=== PATIENT | female | born 1975 | race Two or more races ===

== ENCOUNTER → 2017-11-16 | Outpatient (REF) | payer MEDICAID ==
[~2017-11-16] MED LIST: ALB6.7R INH; AMOX500T10 PO; BUD180R INH; FEXO180T87 PO; INDO-21 PO; KET10 PO; LIDO15SO2 PO; PRED-1 PO; [UNRECOGNIZED DRUG - CODE] PO
== END ==
LOC: ZZSENDIN 15:00
PROVIDERS: ATTEND Physician Assistant
DX: Z01.810 Encounter for preprocedural cardiovascular examination (principal); Z01.812 Encounter for preprocedural laboratory examination
CPT/HCPCS: 81001

== ENCOUNTER → 2017-11-16 | Outpatient (CLI) | payer MEDICAID ==
--- NOTE | 2017-11-16 14:52 | RADIOLOGY IMAGING REPORT ---
FACILITY: [facility] - [place] PATIENT NAME: Linda Smith : 1975 MR: [id number] V: [id number] EXAM DATE: ORDERING PHYSICIAN: JENARO LAL TECHNOLOGIST: Location: [facility] [place] Patient: Linda Smith : 1975 Visit/Account:[id number] Date of Sevice: 11/16/2017 CERVICAL SPINE 2 OR 3 VIEW Indication: Ankylosing spondylitis Comparison: None. Findings: Vertebral bodies and posterior elements are intact. There is mild disc space narrowing at C 4-5. Remaining disc spaces are normal. Facets are unremarkable. IMPRESSION: Mild cervical spondylosis C4-5. Report Dictated By: David Armstrong at 11/16/2017 2:46 PM Report E-Signed By: David Armstrong at 11/16/2017 2:48 PM WSN:[id number]
== END ==
LOC: RAD 13:57
PROVIDERS: ATTEND Physician Assistant
DX: M47.892 Other spondylosis, cervical region (principal)
CPT/HCPCS: 72040

== ENCOUNTER → 2017-11-23 | Outpatient (REF) | payer MEDICAID ==
[~2017-11-23] MED LIST changes: +CYCL10TA29 PO; +DUL100/5PT INH
== END ==
LOC: ZZSENDIN 14:03
PROVIDERS: ATTEND Physician Assistant
DX: R31.9 Hematuria, unspecified (principal)
CPT/HCPCS: 81001

== ENCOUNTER 2017-11-29 01:23 | Observation (INO) | payer MEDICAID ==
[~2017-11-29] VITALS: Ht 157.5 cm; Wt 77.6 kg
[2017-11-29] VITALS (10 sets, daily range): BP systolic 103–119; BP diastolic 68–83
[2017-11-29] MEDS ORDERED: fentaNYL CITR 100 MCG/2 ML AMP ONE ×4 (10:24→15:08)
[2017-11-29] MEDS ORDERED: LIDOCAINE MPF 1% 5 ML VIAL ONE ×2 (10:24→10:25)
[2017-11-29] MEDS ORDERED: MIDAZOLAM 2 MG/2 ML VIAL ONE (10:24)
[2017-11-29] MEDS ORDERED: DEXAMETHASONE SOD PHOS 10MG/ML ONE (10:24)
[2017-11-29] MEDS ORDERED: PROPOFOL EMUL(*) 10MG/ML 20 ML 20 ML ONE (10:24)
[2017-11-29] MEDS ORDERED: ONDANSETRON 4 MG/2 ML VIAL ONE (10:24)
[2017-11-29] MEDS ORDERED: ROPIVACAINE 0.2% 20 ML VIAL ONE (10:25)
[2017-11-29] MEDS: NORMOSOL R SOLN(*) 1000 ML BAG 1,000 ML IV PRN ×2 (10:50→15:30)
[2017-11-29] MEDS ORDERED: SUGAMMADEX SOD 200 MG/2 ML SDV ONE (10:59)
[2017-11-29] MEDS ORDERED: MIDAZOLAM 2 MG/2 ML VIAL IVP PRN (11:10)
[2017-11-29] MEDS ORDERED: CELECOXIB 200 MG CAP PO ONE (11:10)
[2017-11-29] MEDS ORDERED: cloNIDine EPIDUR INJ 100MCG/ML 40 MCG, ROPIVACAINE 0.5% 20 ML VIAL 25 ML, EPINEPHrine H... INJ ONE (11:10)
[2017-11-29] MEDS ORDERED: ACETAMINOPHEN 500 MG TAB PO ONE (11:10)
[2017-11-29] MEDS ORDERED: PREGABALIN 150 MG CAPSULE PO ONE (11:10)
[2017-11-29] MEDS ORDERED: ROPIVACAINE 0.2% 400 MG/200ML 250 ML CONINFUS ONE (11:10)
[2017-11-29] MEDS ORDERED: FAMOTIDINE 20 MG TAB PO ONE (11:10)
[2017-11-29] MEDS ORDERED: TRANEXAMIC AC 1000 MG/10ML SDV 1,000 MG in DEXTROSE 5% 50 ML BAG 50 ML IV ONE (11:10)
[2017-11-29] MEDS ORDERED: LIDOCAINE/SOD BICARB 8.4% SYR ID ONE (11:10)
[2017-11-29] MEDS ORDERED: ceFAZolin(*) 1 GM VIAL 1 GM in NS(*) 0.9% 100 ML ADDVANT BAG 100 ML IVPB ONE (11:10)
[2017-11-29] MEDS ORDERED: LIDOCAINE 1%MDV(*)200 MG/20 ML 1 ML ONE (13:48)
[2017-11-29] MEDS ORDERED: ROPIVACAINE 0.5% 20 ML VIAL ONE (13:48)
--- NOTE | 2017-11-29 15:13 | RADIOLOGY IMAGING REPORT ---
FACILITY: [facility] - [place] PATIENT NAME: Linda Smith : 1975 MR: [id number] V: [id number] EXAM DATE: ORDERING PHYSICIAN: MAXI URIARTE TECHNOLOGIST: Location: [facility] - [place] Patient: Linda Smith : 1975 Visit/Account:[id number] Date of Sevice: 11/29/2017 Exam type: KNEE LIMITED RIGHT History: POST OP RIGHT TKA Comparison: None. Findings: AP and lateral views the right knee demonstrate a right knee arthroplasty in good anatomic alignment. Soft tissue gas projects over the anterior aspect of this postoperative knee IMPRESSION: 1. As above Report Dictated By: Jessica Liriano MD at 11/29/2017 3:07 PM Report E-Signed By: Jessica Liriano MD at 11/29/2017 3:08 PM WSN:[email or web address]
[2017-11-29] MEDS ORDERED: PROMETHAZINE 25 MG/ML 1 ML AMP IVP PRN (15:20)
[2017-11-29] MEDS ORDERED: NALOXONE HCL 0.4 MG/ML VIAL IVP PRN (15:20)
[2017-11-29] MEDS ORDERED: BISACODYL 10 MG SUPP PR PRN (15:20)
[2017-11-29] MEDS ORDERED: MORPHINE SULFATE 30 MG PCA IV PRN (15:20)
[2017-11-29] MEDS ORDERED: FLUSH 10 ML SYR IVP PRN (15:20)
[2017-11-29] MEDS ORDERED: NORMOSOL R SOLN(*) 1000 ML BAG 1,000 ML IV PRN (15:20)
[2017-11-29] MEDS ORDERED: MAGNESIUM HYDROXIDE* 30ML UDCP PO PRN (15:20)
[2017-11-29] MEDS ORDERED: ZOLPIDEM TARTRATE 5 MG TAB PO PRN (15:20)
[2017-11-29] MEDS ORDERED: ONDANSETRON 4 MG/2 ML VIAL IVP PRN (15:20)
[2017-11-29] MEDS ORDERED: MORPHINE 4 MG/ML SDV IVP PRN (15:40)
[2017-11-29] MEDS ORDERED: VITA1CAP46 PO (16:13)
[2017-11-29] MEDS: MOMETASONE/FORMOT 100MCG/5 MCG IH PRN (18:12)
[2017-11-29] MEDS: oxyCODONE HCL 5 MG CAP PO PRN (18:17)
[2017-11-29] MEDS: ACETAMINOPHEN 500 MG TAB PO SCH (18:17)
--- NOTE | 2017-11-29 19:13 | Hospitalist Consultation ---
History of Present Illness Requesting Physician Dr. Manning Reason for Consult Asthma History of Present Illness This patient was admitted for knee replacement surgery. It is reported that the surgery went well and was without complication. History Problems: (1) Back pain Status: Chronic (2) Asthma Home Meds Reported Medications Vitamin B Complex (VITAMIN B COMPLEX) 1 Each Capsule, 1 EACH PO QDAY, CAPSULE 11/29/17 Cyclobenzaprine Hcl (CYCLOBENZAPRINE HCL) 10 Mg Tablet, 10 MG PO TID Y for PAIN , #9 TAB 11/22/17 Mometasone/Formoterol (DULERA 100 MCG/5 MCG INHALER) 13 Gm Inh, 13 GM INH BID Y for ALLERGY SYMPTOMS, INH 11/22/17 Fexofenadine Hcl (FEXOFENADINE HCL) 180 Mg Tablet, 1 TAB PO QDAY 01/05/17 Ferrous Gluconate (FERROUS GLUCONATE) 324 Mg Tablet, 1 TAB PO TID 01/05/17 Discontinued Reported Medications Indomethacin (INDOMETHACIN) 25 Mg Capsule, 1 CAP PO TID, CAPSULE 01/05/17 Albuterol Sulfate (PROVENTIL HFA) 6.7 Gm Inh, 2 PUFF INH Q4-6H, INH 01/05/17 Budesonide (PULMICORT FLEXHALER) 180 Mcg Aerp, 2 PUFF INH BID, MCG 01/05/17 Prednisone 10 Mg Tab (PREDNISONE 10 MG TAB) 10 Mg Tablet, 0.5 TAB PO DAILY, TAB 01/05/17 Discontinued Scripts Ketorolac Tromethamine (KETOROLAC TROMETHAMINE) 10 Mg Tab, 10 MG PO Q6H, #20 TAB Prov:TREVOR SULLIVAN ARTIST'S REPRESENTATIVE 02/06/17 Lidocaine HCl (Lidocaine HCl Viscous) 2 % Solution, 15 ML PO Q2H Y for PAIN for 5 Days, #450 ML 0 Refills Prov:KIMBERLY MCGHEE JR, MD 01/25/17 Allergies: Coded Allergies: jose alfredo (Verified Allergy, Unknown, UNKNOWN, 02/06/17) hydrocodone (Verified Allergy, Unknown, UNKNOWN, 02/06/17) Patient History: FH: liver disease FATHER, , Age:53 Hx Smoking: Yes (2-3 PP WEEK QUIT 2012) Smoking Status: Former Smoker Hx Alcohol Use: No Hx Substance Use Disorder: No Social Drug Use: Never History of IV Drug Use: No Review of Systems All Systems Reviewed/Normal: Yes Exam Vital Signs Vital Signs Date Time Temp Pulse Resp B/P (MAP) Pulse Ox O2 Delivery O2 Flow Rate FiO2 11/29/17 18:13 84 14 11/29/17 18:13 97 Nasal Cannula 0.5 11/29/17 18:00 112/74 (87) 11/29/17 16:02 97.8 Neuro: No Gross deficits Cardiovascular: Regular Rate and Rhythm Respiratory: Clear to Auscultation Extremities: No Edema Integumentary: No Cyanosis Assessment and Plan Problems: (1) S/P knee replacement Assessment & Plan: She is on aspirin prophylaxis. (2) Asthma Assessment & Plan: She is on chronic treatment with Dulera. Venous Thromboembolism Antithrombotics Is Pt On Any Antithrombotics?: No Exam Sepsis Risk: No Definite Risk SARITA RHODES DO Nov 29, 2017 19:13
[2017-11-29] MEDS: KETOROLAC TROM 10MG TAB PO PRN (19:42)
[2017-11-29] MEDS: ceFAZolin(*) 1 GM VIAL 1 GM in NS(*) 0.9% 100 ML ADDVANT BAG 100 ML IVPB SCH (19:47)
[2017-11-29] MEDS: FERROUS GLUCONATE 324 MG TAB PO SCH (21:06)
[2017-11-30] MEDS: oxyCODONE HCL 5 MG CAP PO PRN ×6 (00:42→22:41)
[2017-11-30] MEDS: KETOROLAC TROM 10MG TAB PO PRN (03:32)
[2017-11-30] MEDS: ACETAMINOPHEN 500 MG TAB PO SCH ×3 (03:32→18:15)
[2017-11-30] MEDS: ceFAZolin(*) 1 GM VIAL 1 GM in NS(*) 0.9% 100 ML ADDVANT BAG 100 ML IVPB SCH ×2 (03:32→11:15)
[2017-11-30 03:33] VITALS: BP 123/77
[2017-11-30] MEDS: MOMETASONE/FORMOT 100MCG/5 MCG IH PRN ×2 (06:00→17:01)
[2017-11-30 07:47] VITALS: BP 96/62
[2017-11-30] MEDS ORDERED: NORMOSOL R SOLN(*) 1000 ML BAG 1,000 ML IV ONE (09:15)
[2017-11-30] MEDS: FERROUS GLUCONATE 324 MG TAB PO SCH ×3 (09:27→20:57)
[2017-11-30] MEDS: DOCUSATE SODIUM 100 MG CAP PO SCH ×2 (09:27→20:57)
[2017-11-30] MEDS: FEXOFENADINE HCL 60 MG TAB PO SCH (09:28)
[2017-11-30] MEDS: ASPIRIN 325 MG ENTERIC COATED PO SCH (09:28)
--- NOTE | 2017-11-30 10:14 | Hospitalist Progress Note ---
Subjective Progress Notes Subjective She has complaints of some dizziness this morning. She had no acute events overnight. Patient Complains of: Neurological: Dizziness Cardiovascular: No: Chest Pain Respiratory: No: Shortness of Breath Physical Exam Vital Signs Date Time Temp Pulse Resp B/P (MAP) Pulse Ox O2 Delivery O2 Flow Rate FiO2 11/30/17 07:47 99.0 90 14 96/62 (73) 96 Nasal Cannula 1.0 Intake and Output 12/01/17 01:00 Intake Total 680 ml Balance 680 ml Intake Oral 580 ml IV Total 100 ml # Voids 1 General Appearance: Alert, Awake, No Acute Distress Neuro: No Gross deficits Cardiovascular: Other (tachycardia noted) Respiratory: No Respiratory Distress, Clear to Auscultation GI: Other (distended) Extremities: Warm, Perfused Psych: Alert & Oriented X3, Appropriate Mood & Affect Assessment and Plan Problems: (1) S/P knee replacement Assessment & Plan: She is on aspirin prophylaxis. She has some lower blood pressures with mild dizziness this morning. We will give her a IV fluid bolus and continue to monitor. She also has not had a bowel movement for two days, and will add Colace to bowel regimen for patient. (2) Asthma Assessment & Plan: She is on chronic treatment with Dulera. Exam Sepsis Risk: No Definite Risk ASIM BAGLEY UTILITY MAINTENANCE WORKER Nov 30, 2017 10:14
[2017-11-30 11:23] VITALS: BP 123/74
--- NOTE | 2017-11-30 12:36 | OPERATIVE REPORT 1 ---
EVENT DATE: November 29, 2017 SURGEON: Preet Manning MD ANESTHESIOLOGIST: Heber Bello MD ANESTHESIA: Right adductor canal block with indwelling catheter and general anesthesia. 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 PROCEDURE PERFORMED Right total knee arthroplasty and hardware removal of retained femoral EndoButton . IMPLANTS MicroPort medial pivot shift CS system with a 4 femur, 4 tibia, 10 mm CS insert , 29 x 8 symmetric patella, femur cut 12 mm, 6 degrees valgus. We utilized two packages of DonJoy cobalt blue cement and ZipLine wound closure system. Anesthesia administered 1 gram of IV tranexamic acid 10 minutes prior to start and at the end of the implantation of the prosthesis. We utilized 50 mL of our standard ropivacaine/Toradol cocktail. SPECIMENS None. COMPLICATIONS None. ESTIMATED BLOOD LOSS Less than 200 mL. OPERATION Patient received appropriate preoperative antibiotic, was brought to the OR, where Dr. Bello performed right adductor canal block and indwelling catheter, followed by general anesthesia. Right thigh tourniquet placed, right lower extremity prepped and draped in the usual sterile fashion. Midline incision was made, followed by a medial parapatellar arthrotomy. We noted significant scarring and hypertrophy of the tissues intraarticularly. We dissected subperiosteally by Bovie along the medial tibial plateau to the level fo the semimembranosus insertion. Significant fat pad scarring was excised. Scars were released from both gutters, patella released and everted. There was still significant scarring in the notch, and this was removed and released subperiosteally by Bovie involving the ACL and PCL. The suprapatellar pouch scar tissue was removed by Bovie. Knee was flexed as far as we could go, which was approximately about 90 degrees at this point, and retractors placed. Remaining articular cartilage from the distal femoral condyles was removed by sagittal saw. Step cut drill was utilized to broach the canal. Intramedullary femoral guide placed and distal cutting block set up and pinned in place at 12 mm, 6 degrees valgus. Distal cut was made. 3 degree external rotation sizing guide was then positioned, referencing off the posterior condyles, epicondyles, anterior flange, and femur was sized to a #4 and holes were drilled. 4-in-1 cutting block was placed. Z retractors were placed to protect the soft tissues , and 4 cuts made. Tibia was then brought anteriorly on the femur with appropriate retractors, and step cut drill utilized to broach the tibial canal and intramedullary tibial guide positioned, referencing for our slope. We sized 10 mm off the least involved lateral tibial plateau and pinned the block into place after referencing for rotation. Appropriate retractors were placed. Cut was made. Tibia sized to #4. Stump of the ACL and PCL, medial and lateral meniscus were removed by Isi. Small osteophytes were removed from the posterior condyles, and we utilized the Mark elevator to elevate the capsule. A #4 tibial base plate was then positioned, referencing from the previous rotation, pinned into place. 10 mm insert was placed, then our #4 femur. We still lacked about 10 degrees of extension, flexion. We got to approximately 120 degrees, and she was stable through varus/valgus. All instrumentation was then removed once again. We placed the knee in full extension, released the posterolateral capsule by Isi in transverse fashion with care to protect the underlying soft tissues. IT band was released. We further released the soft tissue from the posterior femur with a Mark elevator, releasing through the origination of the gastrocs and proximal to this. We then replaced all our prosthetic trials, and now were able to achieve full extension with only mild tension at this time. She flexed to 130. She was stable through varus valgus stress and appropriate anterior drawer. Knee was brought up in full extension. Patella was sized to 22 mm. This was cut down with an 8 mm guide, and then we sized the patella to 29 x 8, and a peg hole guide was positioned inferiorly and medially, and peg hole was drilled and patella placed. We drilled the peg holes for the femur, placed the pegs, cut for our trochlear chip, placed this. Again we had the aforementioned range of motion and stability. Patella, femur, tibial insert were removed. Appropriate retractors were placed. Saco was positioned for our keel, which was then cut, reamed and punched, and this was removed. Bone plug was placed in the distal femur. We copiously irrigated by pulse lavage while we mixed two packages of our cement. We injected 10 mL of our cocktail into the posterior capsule, then we cleaned all the surfaces, and with irrigation dried this, and then cemented the tibia into place followed by our 10 mm insert and a #4 femur. Excess cement was removed. The knee was brought out in full extension with axial compression while we cemented the patella. After 14 minutes, the cement had cured, and again the aforementioned range of motion and stability are noted. While we were waiting for the cement to cure, we injected the remaining 40 mL of our cocktail in the distal quad mechanism and copiously irrigated by pulse lavage, which we did once again. We then closed the arthrotomy with #2 Vicryl, followed by 2-0 Vicryl for subcutaneous tissues and at a 45 degree angle after cleaning the wounds, our ZipLine wound closure system. Dressing was applied, patient extubated and taken to recovery in stable condition. Hospitalist team will be consulted for medical management and anticoagulation, PT for rehabilitation. [place]
--- NOTE | 2017-11-30 12:48 | EKG ---
FACILITY: [facility] - [place] PATIENT NAME: SHEILA BROWN : [id number] MR: [id number] V: [id number] EXAM DATE: ORDERING PHYSICIAN: ASIM BAGLEY TECHNOLOGIST: NELIDA Palacios Reason : TACHY \ DIZZY Blood Pressure : / mmHG Vent. Rate : 109 BPM Atrial Rate : 109 BPM P-R Int : 146 ms QRS Dur : 084 ms QT Int : 314 ms P-R-T Axes : 039 012 008 degrees QTc Int : 422 ms Sinus tachycardia Otherwise normal ECG No previous ECGs available Confirmed by Brigido Cornell ([id number] on 11/30/2017 1:12:38 PM Referred By: KEVYN Confirmed By:Brigido Cabrera
[2017-11-30 12:58] LABS: PLATELET COUNT, AUTOMATED 433 K/uL (150-450)
[2017-11-30 13:03] VITALS: Ht 157.5 cm; Wt 77.6 kg
[2017-11-30 14:29] VITALS: BP 115/68
[2017-11-30 20:37] VITALS: BP 126/69
[2017-11-30 22:32] VITALS: BP 118/65
[2017-12-01 02:47] VITALS: BP 106/49
[2017-12-01] MEDS: oxyCODONE HCL 5 MG CAP PO PRN ×2 (02:52→09:45)
[2017-12-01] MEDS: ACETAMINOPHEN 500 MG TAB PO SCH (02:52)
[2017-12-01] MEDS: MOMETASONE/FORMOT 100MCG/5 MCG IH PRN (05:54)
[2017-12-01 07:14] VITALS: BP 113/65
[2017-12-01] MEDS ORDERED: OXYC-865 PO (07:39)
--- NOTE | 2017-12-01 07:41 | DISCHARGE SUMMARY ---
DATE OF ADMISSION: November 29, 2017 DATE OF DISCHARGE: December 01, 2017 HISTORY The patient is a 42-year-old female admitted to Day Surgery and underwent right total knee arthroplasty for arthritis secondary to ankylosing spondylitis and flexion and extension contractures. Postoperatively, the hospitalist team was consulted for medical management and anticoagulation, PT for rehabilitation. She progressed in a satisfactory manner. On the day of discharge, the right lower extremity was neurovascularly intact. The plan is for clearance by hospitalist and PT then discharge to home with outpatient physical therapy and home CPM. The hospitalist team will transfer medical management and anticoagulation. She will have Percocet 5/325 mg #30 for pain. Follow her up at the 2 week yoel. PRINCIPAL DIAGNOSIS Right knee degenerative joint disease. PRINCIPAL PROCEDURE Right total knee arthroplasty. [place]
[2017-12-01] MEDS: FERROUS GLUCONATE 324 MG TAB PO SCH (08:34)
[2017-12-01] MEDS: FEXOFENADINE HCL 60 MG TAB PO SCH (08:34)
[2017-12-01] MEDS: ASPIRIN 325 MG ENTERIC COATED PO SCH (08:34)
[2017-12-01] MEDS: DOCUSATE SODIUM 100 MG CAP PO SCH (08:34)
[2017-12-01] MEDS ORDERED: ASPI-764 PO (08:55)
--- NOTE | 2017-12-01 10:27 | Hospitalist Progress Note ---
Subjective Progress Notes Subjective She has no concerns this morning. She had no acute events overnight. She reports the dizziness has resolved and her heart rate is normal this morning. Patient Complains of: Cardiovascular: No: Chest Pain Respiratory: No: Shortness of Breath Physical Exam Vital Signs Date Time Temp Pulse Resp B/P (MAP) Pulse Ox O2 Delivery O2 Flow Rate FiO2 12/01/17 07:14 98.1 74 16 113/65 (81) 96 Nasal Cannula 1.0 Intake and Output 12/02/17 01:00 # Voids 3 General Appearance: Alert, Awake, No Acute Distress, Afebrile Neuro: No Gross deficits Cardiovascular: Regular Rate and Rhythm Respiratory: No Respiratory Distress, Clear to Auscultation GI: Soft and Non-Tender Psych: Alert & Oriented X3, Appropriate Mood & Affect Result Diagram: 11/30/17 1250 11/30/17 1250 Assessment and Plan Problems: (1) S/P knee replacement Assessment & Plan: Followed by Dr. Manning. She is on aspirin for DVT prophylaxis. She has no history of DVT or PE. (2) Asthma Assessment & Plan: She is on chronic treatment with Dulera. Exam Sepsis Risk: No Definite Risk ASIM BAGLEY Dec 01, 2017 10:27
== END 2017-12-01 08:57 | disposition home or self-care (01) ==
LOC: OR 01:23 → MED 16:00
PROVIDERS: ADMIT Orthopaedic Surgery; ATTEND Orthopaedic Surgery
DX: M17.11 Unilateral primary osteoarthritis, right knee (principal); M45.9 Ankylosing spondylitis of unspecified sites in spine; Z72.0 Tobacco use; J45.909 Unspecified asthma, uncomplicated; R05 Cough; J02.9 Acute pharyngitis, unspecified; R42 Dizziness and giddiness; R00.0 Tachycardia, unspecified
CPT/HCPCS: 27447; 36415; 73560; 76942; 85025; 85610; 86850; 86900; 86901; 93005; 94640; 97116; 97161; 97530; C1713; C1776; G0378; J0171; J0690; J0735; J1100; J1885; J2001; J2250; J2270; J2405; J2704; J2795; J3010; J7050; J7060; 82040; 82247; 82310; 82374; 82435; 82565; 82947; 84075; 84132; 84155; 84295; 84450; 84460; 84520

== ENCOUNTER → 2018-01-17 | Outpatient (CLI) | payer MEDICAID ==
[2017-11-30 13:03] VITALS: BMI 31.3
[~2018-01-17] MED LIST changes: +ASPI-764 PO; +OXYC-865 PO; +VITA1CAP46 PO
[2018-01-17 14:30] LABS: PLATELET COUNT, AUTOMATED 431 K/uL (150-450)
== END ==
LOC: LAB 14:03
PROVIDERS: ATTEND Orthopaedic Surgery
DX: Z01.812 Encounter for preprocedural laboratory examination (principal); M17.12 Unilateral primary osteoarthritis, left knee
CPT/HCPCS: 36415; 81001; 82040; 82247; 82310; 82374; 82435; 82565; 82947; 84075; 84132; 84155; 84295; 84450; 84460; 84520; 85025

== ENCOUNTER 2018-01-24 02:03 | Observation (INO) | payer MEDICAID ==
[2018-01-23 15:47] LABS: INR 1.02
[2018-01-24] VITALS (13 sets, daily range): BP systolic 94–149; BP diastolic 60–93
[~2018-01-24] VITALS: Ht 157.5 cm; Wt 75.3 kg
[2018-01-24] MEDS ORDERED: PROPOFOL EMUL(*) 10MG/ML 20 ML 20 ML ONE (07:53)
[2018-01-24] MEDS ORDERED: DEXAMETHASONE SOD PHOS 10MG/ML ONE (07:53)
[2018-01-24] MEDS ORDERED: ONDANSETRON 4 MG/2 ML VIAL ONE (07:53)
[2018-01-24] MEDS ORDERED: fentaNYL CITR 250 MCG/5 ML AMP ONE (07:53)
[2018-01-24] MEDS ORDERED: LIDOCAINE MPF 1% 5 ML VIAL ONE (07:53)
[2018-01-24] MEDS ORDERED: ROPIVACAINE 0.2% 20 ML VIAL ONE (07:57)
[2018-01-24] MEDS ORDERED: KETAMINE HCL 200 MG/20 ML MDV ONE ×2 (08:02→09:30)
[2018-01-24] MEDS ORDERED: NORMOSOL R SOLN(*) 1000 ML BAG 1,000 ML IV PRN ×2 (08:30→12:35)
[2018-01-24] MEDS ORDERED: CELECOXIB 200 MG CAP PO ONE (08:30)
[2018-01-24] MEDS ORDERED: ACETAMINOPHEN 500 MG TAB PO ONE (08:30)
[2018-01-24] MEDS ORDERED: FAMOTIDINE 20 MG TAB PO ONE (08:30)
[2018-01-24] MEDS ORDERED: LIDOCAINE/SOD BICARB 8.4% SYR ID ONE (08:30)
[2018-01-24] MEDS ORDERED: ceFAZolin(*) 1 GM VIAL 1 GM in NS(*) 0.9% 100 ML ADDVANT BAG 100 ML IVPB ONE (08:30)
[2018-01-24] MEDS ORDERED: MIDAZOLAM 2 MG/2 ML VIAL IVP PRN (08:30)
[2018-01-24] MEDS ORDERED: TRANEXAMIC AC 1000 MG/10ML SDV 1,000 MG in DEXTROSE 5% 50 ML BAG 50 ML IV ONE (08:30)
[2018-01-24] MEDS ORDERED: PREGABALIN 150 MG CAPSULE PO ONE (08:30)
[2018-01-24] MEDS ORDERED: cloNIDine EPIDUR INJ 100MCG/ML 40 MCG, ROPIVACAINE 0.5% 20 ML VIAL 25 ML, EPINEPHrine H... INJ ONE (08:30)
[2018-01-24] MEDS ORDERED: ALBUTEROL/IPRATROPIUM 3 ML NEB ONE (08:42)
[2018-01-24] MEDS ORDERED: ROPIVACAINE 0.2% 400 MG/200ML 250 ML CONINFUS ONE (09:30)
[2018-01-24] MEDS ORDERED: ROCURONIUM BROM 10 MG/ML 5 ML ONE (09:45)
[2018-01-24] MEDS ORDERED: LACTATED RINGER 3000 ML BAG IR ONE (10:24)
[2018-01-24] MEDS ORDERED: NS 0.9% IRRIGATION 1000ML PLCT IR ONE (10:25)
[2018-01-24] MEDS ORDERED: fentaNYL CITR 100 MCG/2 ML AMP ONE ×2 (12:19→12:52)
[2018-01-24] MEDS ORDERED: PROMETHAZINE 25 MG/ML 1 ML AMP IVP PRN (12:35)
[2018-01-24] MEDS ORDERED: ONDANSETRON 4 MG/2 ML VIAL IVP PRN (12:35)
[2018-01-24] MEDS ORDERED: BISACODYL 10 MG SUPP PR PRN (12:35)
[2018-01-24] MEDS ORDERED: MAGNESIUM HYDROXIDE* 30ML UDCP PO PRN (12:35)
[2018-01-24] MEDS ORDERED: ZOLPIDEM TARTRATE 5 MG TAB PO PRN (12:35)
[2018-01-24] MEDS ORDERED: FLUSH 10 ML SYR IVP PRN (12:35)
[2018-01-24] MEDS: MORPHINE 4 MG/ML SDV IVP PRN ×2 (13:51→16:09)
[2018-01-24] MEDS ORDERED: ALBUTEROL 8 GM INHALER INH PRN (14:05)
--- NOTE | 2018-01-24 14:15 | Hospitalist Consultation ---
History of Present Illness Requesting Physician Dr. Manning Reason for Consult Medical Management- Asthma Chief Complaint s/p left total knee replacement History of Present Illness She was admitted s/p left total knee replacement. It is reported the surgery went well and without complication. History Problems: (1) Asthma Status: Chronic Home Meds Discontinued Reported Medications Oxycodone Hcl/Acetaminophen (PERCOCET 5-325 MG TABLET) 1 Each Tablet, 1-2 TAB PO Q6H PRN for PAIN, #30 TAB 12/01/17 Vitamin B Complex (VITAMIN B COMPLEX) 1 Each Capsule, 1 EACH PO QDAY, CAPSULE 11/29/17 Mometasone/Formoterol (DULERA 100 MCG/5 MCG INHALER) 13 Gm Inh, 13 GM INH BID PRN for ALLERGY SYMPTOMS, INH 11/22/17 Fexofenadine Hcl (FEXOFENADINE HCL) 180 Mg Tablet, 1 TAB PO QDAY 01/05/17 Ferrous Gluconate (FERROUS GLUCONATE) 324 Mg Tablet, 1 TAB PO TID 01/05/17 Discontinued Scripts Aspirin (ASPIRIN EC) 325 Mg Tablet., 325 MG PO QDAY, #30 TAB Prov:ASIM BAGLEY Miguel CHEMICAL EQUIPMENT SALES ENGINEER 12/01/17 Allergies: Coded Allergies: jose alfredo (Verified Allergy, Unknown, UNKNOWN, 02/06/17) hydrocodone (Verified Allergy, Unknown, UNKNOWN, 02/06/17) Patient History: FH: liver disease FATHER, , Age:53 Hx Smoking: Yes (2-3 PP WEEK QUIT 2012) Smoking Status: Former Smoker When Quit Tobacco?: 2012 Caffeine/Cups Per Day: OCCASSIONALLY, NOT DAILY Hx Alcohol Use: Yes When Quit Alcohol?: 2010 Hx Substance Use Disorder: No Social Drug Use: Never Review of Systems All Systems Reviewed/Normal: Yes, Except as Noted Exam Vital Signs Vital Signs Date Time Temp Pulse Resp B/P (MAP) Pulse Ox O2 Delivery O2 Flow Rate FiO2 01/24/18 13:44 97.6 92 20 131/83 (99) 93 Nasal Cannula 2.0 General Appearance: Alert, Awake, No Acute Distress, Afebrile Neuro: No Gross deficits Cardiovascular: Regular Rate and Rhythm Respiratory: No Respiratory Distress, Clear to Auscultation GI: Abd Soft and Non-Tender Psych: Alert & Oriented X3, Appropriate Mood & Affect Assessment and Plan Problems: (1) S/P knee replacement Status: Acute Assessment & Plan: Followed by Dr. Manning. She will be placed on Aspirin for DVT prophylaxis. She has no history of DVT or PE. (2) Asthma Status: Chronic Assessment & Plan: She is on chronic treatment with Dulera. She will be placed albuterol inhaler during admission. Venous Thromboembolism Antithrombotics Is Pt On Any Antithrombotics?: No Problem Qualifiers (1) S/P knee replacement: Laterality: left Qualified Codes: Z96.652 - Presence of left artificial knee joint ASIM BAGLEY CHEMICAL EQUIPMENT SALES ENGINEER Jan 24, 2018 14:15
[2018-01-24] MEDS ORDERED: FEXOFENADINE HCL 60 MG TAB PO ONE (14:30)
[2018-01-24] MEDS: oxyCODONE HCL 5 MG CAP PO PRN ×2 (14:46→21:31)
--- NOTE | 2018-01-24 14:58 | RADIOLOGY IMAGING REPORT ---
FACILITY: [facility] PATIENT NAME: Linda Smith : 1975 MR: [id number] V: [id number] EXAM DATE: ORDERING PHYSICIAN: MAXI URIARTE TECHNOLOGIST: Location: [facility] - [place] Patient: Linda Smith : 1975 Visit/Account:[id number] Date of Sevice: 01/24/2018 Exam type: KNEE LIMITED LEFT History: POST OP L TKA Comparison: None. Findings: Two views the left knee demonstrate a left knee arthroplasty in good anatomic alignment. Soft tissue gas projects over the anterior aspect of this postoperative knee IMPRESSION: 1. As above Report Dictated By: Jessica Liriano MD at 01/24/2018 2:54 PM Report E-Signed By: Jessica Liriano MD at 01/24/2018 2:54 PM WSN:[email or web address]
[2018-01-24] MEDS ORDERED: CYCL10TA29 PO (15:55)
[2018-01-24] MEDS ORDERED: FERR-53 PO (15:55)
[2018-01-24] MEDS ORDERED: LACT1CAP17 PO (15:55)
[2018-01-24] MEDS ORDERED: [UNRECOGNIZED DRUG - OTHER] (15:59)
[2018-01-24] MEDS ORDERED: VITA1CAP46 PO (15:59)
[2018-01-24] MEDS ORDERED: FEXO-72 PO (15:59)
[2018-01-24] MEDS: ACETAMINOPHEN 500 MG TAB PO SCH (16:44)
[2018-01-24] MEDS: ceFAZolin(*) 1 GM VIAL 1 GM in NS(*) 0.9% 100 ML ADDVANT BAG 100 ML IVPB SCH (16:45)
[2018-01-24] MEDS: FERROUS GLUCONATE 324 MG TAB PO SCH (21:30)
[2018-01-25] MEDS: ceFAZolin(*) 1 GM VIAL 1 GM in NS(*) 0.9% 100 ML ADDVANT BAG 100 ML IVPB SCH ×2 (01:05→08:51)
[2018-01-25] MEDS: ACETAMINOPHEN 500 MG TAB PO SCH ×3 (01:07→16:15)
[2018-01-25 03:27] VITALS: BP 99/67
[2018-01-25] MEDS: oxyCODONE HCL 5 MG CAP PO PRN ×5 (03:31→21:56)
[2018-01-25] MEDS: KETOROLAC TROM 10MG TAB PO PRN (06:44)
[2018-01-25 07:30] VITALS: BP 112/64
[2018-01-25] MEDS: PANTOPRAZOLE SOD 40 MG TABEC PO SCH (08:52)
[2018-01-25] MEDS: FERROUS GLUCONATE 324 MG TAB PO SCH ×3 (08:52→21:53)
[2018-01-25] MEDS: ASPIRIN 325 MG TAB PO SCH (08:53)
--- NOTE | 2018-01-25 09:28 | Hospitalist Progress Note ---
Subjective Progress Notes Subjective She has no complaints this morning. She had no acute events overnight. Patient Complains of: Cardiovascular: No: Chest Pain Respiratory: No: Shortness of Breath Physical Exam Vital Signs Date Time Temp Pulse Resp B/P (MAP) Pulse Ox O2 Delivery O2 Flow Rate FiO2 01/25/18 07:30 98.1 73 20 112/64 (80) 91 Room Air 01/24/18 23:36 0.5 Intake and Output 01/25/18 07:00 Intake Total 2030 ml Output Total 200 ml Balance 1830 ml Intake Oral 222 ml IV Total 1808 ml Output Estimated Blood Loss 200 ml # Voids 4 General Appearance: Alert, Awake, No Acute Distress, Afebrile Neuro: No Gross deficits Cardiovascular: Regular Rate and Rhythm Respiratory: No Respiratory Distress, Clear to Auscultation GI: Soft and Non-Tender Extremities: No Edema Psych: Alert & Oriented X3, Appropriate Mood & Affect Result Diagram: 01/25/18 0520 Assessment and Plan Problems: (1) S/P knee replacement Status: Acute Assessment & Plan: Followed by Dr. Manning. She will be placed on Aspirin for DVT prophylaxis. She has no history of DVT or PE. (2) Asthma Status: Chronic Assessment & Plan: She is on chronic treatment with Dulera. She will be placed albuterol inhaler during admission. Exam Sepsis Risk: No Definite Risk Problem Qualifiers (1) S/P knee replacement: Laterality: left Qualified Codes: Z96.652 - Presence of left artificial knee joint ASIM BAGLEYP Jan 25, 2018 09:28
[2018-01-25 09:36] VITALS: Ht 157.5 cm; Wt 75.3 kg
--- NOTE | 2018-01-25 11:27 | OPERATIVE REPORT 1 ---
EVENT DATE: January 24, 2018 SURGEON: Preet Manning MD ANESTHESIOLOGIST: Carlos Ryan MD ANESTHESIA: Left adductor canal block with indwelling catheter followed by general anesthesia. DRY ROLLER: JOHNNIE Parada PREOPERATIVE DIAGNOSIS Left knee degenerative joint disease secondary to ankylosing spondylitis and significant flexion contracture. POSTOPERATIVE DIAGNOSIS Left knee degenerative joint disease secondary to ankylosing spondylitis and significant flexion contracture. PROCEDURE PERFORMED Left total knee arthroplasty. IMPLANTS MicroPort Pivot-Shift CS system with a 4 femur, 4 tibia, 10 mm CS insert, 8 x 32 cemented patella. Femur was cut at 6 degrees valgus, and we started at 12 mm and moved up to 14 mm in total. We also utilized two packages of DonJoy [place] Blue Cement and ZipLine wound closure system. At the end of the case, we also injected 50 mL of our standard Toradol/ropivacaine cocktail. OPERATION Patient received appropriate preoperative antibiotics and brought to the OR where Dr. Ryan performed left adductor canal block, followed by general anesthesia. Left thigh tourniquet placed, but was not utilized throughout the case. The left lower extremity was prepped and draped in the usual sterile fashion. A midline incision was followed by medial parapatellar arthrotomy. We dissected subperiosteally along the medial tibial plateau to the level of semimembranosus insertion. Significantly fat pad scarring was noted, and it was actually adhered to the notch. This was released and excised and the lateral gutter released of significant scarring. There was significant scarring noted in the suprapatellar pouch, and this was released and the anterior femur exposed by Bovie. We brought the knee up into flexion, and preoperatively, we had known that she lacked 30 degrees of extension. In the hyperflexed position, we subperiosteally released the ACL and PCL, then removed the distal femoral articular cartilage and the femoral condyles, then utilized the step cut drill to broach the canal. Distal femoral alignment guide was positioned, and secondary to her significant flexure contracture, we set this up at 12 mm cut. With care taken to protect the soft tissues, this cut was made. We then placed our 3-degree external rotation guide referencing off the anterior flange of the femur, epicondyles, and posterior condyles, and drilled the 3-degree external rotation holes, then placed our four-in-one cutting block as we had sized this for a #4. We placed Z retractors to protect the soft tissues and made our four cuts. We then brought the tibia anterior to the femur with appropriate retractors, utilized the step cut drill to broach the tibial canal, placed our intramedullary tibial guide. Referencing 10 mm off the least involved lateral tibial plateau, we set up our cutting blocking referencing from rotation and the depth of the cut and the intramedullary guide referenced for our slope. We pinned the block into place with care taken to protect the soft tissues. We made our 10 mm cut. We removed osteophytes off the medial tibial plateau. We then removed the stump of the ACL and PCL, medial and lateral meniscus. Removed a small posterior osteophyte off the lateral femoral condyle with a curved osteotome, then elevated the capsule with a Mark elevator. We then placed our trial tibial baseplate, and referencing the previous rotation, we pinned this in place. We then placed a 10 mm insert and a #4 femur. We still had a significant contracture release, 15 degrees. Removed the femur, tibial insert, and the trial tibia. We then replaced distal femoral cutting block and then took 2 more millimeters of the distal plane, and we made this cut. Then placed our four-in-one cutting block and then recut our chamfers. We also reassessed the anterior and posterior cuts, and these were fine. We then reset up our tibial cutting block and then dropped this down 2 mm for another 2 mm cut here also. We then placed our baseplate referencing from the previous rotation, pinned this into place, placed our 10 mm insert and #4 femur. We still had a slight contracture, so we removed all the instrumentation once again and released the popliteal tendon and the IT band as well as further released the gastroc insertion, and the capsule was noted to be tight posteromedially and posterolaterally. There was also a small fabella posterolaterally which we removed and released the capsule also. We then placed our trial tibia baseplate, tibial insert, and then the femur. We now achieved full extension. She had been achieving full flexion previously and had preoperatively also. We then brought the knee into full extension and sized the patella to 22 mm. We set up our 8 mm cutting guide, made our cut. This accepted our 8 x 32 peg hole guide, which was positioned inferomedially and peg holes drilled, and this accepted our trial. Knee was brought up into flexion once again. Peg hole was drilled for the femur, placed, and we cut for a trochlear chip, and this was placed. Again, we had the aforementioned range of motion which was full extension to 30 degrees, limited only by body habitus. She was stable to varus/valgus stress. The patella tracked well. She had a satisfactory endpoint and anterior drawer testing. Patella, femur, and trial tibial insert were then removed. Appropriate retractors were placed, and we set up for keel guide. This was then cut, reamed, and punched, and all this instrumentation was removed. We then brought the knee up in full extension and copiously irrigated it by pulse lavage as we mixed two packages of DonJoy [place] Blue Cement. I injected 10 mL of our cocktail into the posterior capsule and brought the knee up into flexion, placed appropriate retractors, cleaned the surfaces once again. Starting at the tibia, we cemented into place a #4, then a 10 mm CS insert, then our #4 femur. Excess cement was removed. The knee brought in full extension with axial compression where we cemented the patella. We then injected the remaining cocktail into the distal quad mechanism, copiously irrigated by pulse lavage, and after 13 minutes, the cement had hardened. Again, we had the aforementioned range of motion and stability. Knee was placed in 30 degrees of flexion. We closed the arthrotomy with #2 Vicryl, followed by 2-0 Vicryl for the subcutaneous tissues, and at 45 degrees after cleaning the wound, ZipLine wound closure system was placed. A compressive dressing was applied. Patient extubated and taken to Recovery in stable condition. Hospitalist team will be consulted for medical management and anticoagulation, PT and OT for rehab. [place]
[2018-01-25 11:36] VITALS: BP 115/64
[2018-01-25 14:51] VITALS: BP 100/66
[2018-01-25 21:56] VITALS: BP 115/72
[2018-01-26] MEDS: ACETAMINOPHEN 500 MG TAB PO SCH ×2 (00:29→08:55)
[2018-01-26] MEDS: KETOROLAC TROM 10MG TAB PO PRN (00:29)
[2018-01-26 04:17] VITALS: BP 123/95
[2018-01-26] MEDS: oxyCODONE HCL 5 MG CAP PO PRN ×2 (04:21→11:14)
[2018-01-26 07:09] VITALS: BP 106/64
[2018-01-26] MEDS: PANTOPRAZOLE SOD 40 MG TABEC PO SCH (08:55)
[2018-01-26] MEDS: FERROUS GLUCONATE 324 MG TAB PO SCH (08:55)
[2018-01-26] MEDS: ASPIRIN 325 MG TAB PO SCH (08:55)
[2018-01-26] MEDS ORDERED: OXYC5CAP21 PO (08:57)
[2018-01-26] MEDS ORDERED: ASPI-757 PO (10:37)
--- NOTE | 2018-01-26 11:07 | Hospitalist Progress Note ---
Subjective Progress Notes Subjective She has no complaints this morning. She had no acute events overnight. Patient Complains of: Cardiovascular: No: Chest Pain Respiratory: No: Shortness of Breath Physical Exam Vital Signs Date Time Temp Pulse Resp B/P (MAP) Pulse Ox O2 Delivery O2 Flow Rate FiO2 01/26/18 10:47 95 Room Air 01/26/18 07:09 98.4 98 16 106/64 (78) 0.5 90 Intake and Output 01/26/18 01:00 Intake Total 649 ml Balance 649 ml Intake Oral 432 ml IV Total 217 ml # Voids 11 # Emeses 1 General Appearance: Alert, Awake, No Acute Distress, Afebrile Neuro: No Gross deficits Cardiovascular: Regular Rate and Rhythm Respiratory: No Respiratory Distress, Clear to Auscultation Extremities: Warm, Perfused; No Edema Psych: Alert & Oriented X3, Appropriate Mood & Affect Result Diagram: 01/25/18 0520 Assessment and Plan Problems: (1) S/P knee replacement Status: Acute Assessment & Plan: Followed by Dr. Mannign. She will be placed on Aspirin for DVT prophylaxis. She has no history of DVT or PE. (2) Asthma Status: Chronic Assessment & Plan: She is on chronic treatment with Dulera. She will be placed albuterol inhaler during admission. Exam Sepsis Risk: No Definite Risk Problem Qualifiers (1) S/P knee replacement: Laterality: left Qualified Codes: Z96.652 - Presence of left artificial knee joint ASIM BAGLEY Miguel KINCAIDP Jan 26, 2018 11:07
== END 2018-01-26 08:49 | disposition home or self-care (01) ==
LOC: OR 02:03 → MED 13:30
PROVIDERS: ADMIT Orthopaedic Surgery; ATTEND Orthopaedic Surgery
DX: M17.5 Other unilateral secondary osteoarthritis of knee (principal); M45.9 Ankylosing spondylitis of unspecified sites in spine; M24.562 Contracture, left knee; N28.9 Disorder of kidney and ureter, unspecified; J45.909 Unspecified asthma, uncomplicated
CPT/HCPCS: 27447; 36415; 73560; 76942; 85014; 85018; 85610; 86850; 86900; 86901; 94640; 97116; 97161; 97530; C1713; C1776; G0378; J0171; J0690; J0735; J1100; J1885; J2250; J2270; J2405; J2704; J2795; J3010; J3490; J7050; J7060; J7620; J2001; J3535

== ENCOUNTER → 2018-02-23 | Outpatient (REF) | payer MEDICAID ==
[2018-01-25 09:36] VITALS: BMI 30.4
[~2018-02-23] MED LIST changes: +ASPI-757 PO; +FERR-53 PO; +FEXO-72 PO; +LACT1CAP17 PO; +OXYC5CAP21 PO; +[UNRECOGNIZED DRUG - OTHER]
== END ==
LOC: ZZSENDIN 12:12
PROVIDERS: ATTEND Physician Assistant
DX: N92.0 Excessive and frequent menstruation with regular cycle (principal)
CPT/HCPCS: 82728

== ENCOUNTER → 2018-03-08 | Outpatient (REF) | payer MEDICAID ==
[2018-01-25 09:36] VITALS: BMI 30.4
[2018-03-08 14:21] LABS: PLATELET COUNT, AUTOMATED 390 K/uL (150-450)
== END ==
PROVIDERS: ATTEND Nurse Practitioner Family
DX: R52 Pain, unspecified (principal)
CPT/HCPCS: 82040; 82150; 82247; 82310; 82374; 82435; 82565; 82947; 83690; 84075; 84132; 84155; 84295; 84450; 84460; 84520; 85025

== ENCOUNTER → 2018-07-11 | Outpatient (CLI) | payer MEDICAID ==
[2018-04-23 11:07] VITALS: BMI 31.6
[~2018-07-11] MED LIST changes: +DOCU-416 PO; +IBUP800T37 PO; +SECU150S2 IJ
--- NOTE | 2018-07-11 11:25 | RADIOLOGY IMAGING REPORT ---
FACILITY: [facility] PATIENT NAME: Linda Smith : 1975 MR: [id number] V: [id number] EXAM DATE: ORDERING PHYSICIAN: LUCIUS ARBOLEDA TECHNOLOGIST: Location: [facility] Patient: Linda Smith : 1975 Visit/Account:[id number] Date of Sevice: 07/11/2018 INDICATION: . Bilateral foot and ankle pain. Was in a wheelchair for 7 years and began walking again one year ago. DATE: 07/11/2018 11:13 AM. TECHNIQUE: CT FOOT W/O RT, CT ANKLE W/O RT. Noncontrast axial CT imaging was performed through the [facility] foot [facility] ankle. One of the following dose optimization techniques was utilized in the performance of this exam: Automated exposure control; adjustment of the mA and/or kV according to the patient's size; or use of an iterative reconstruction technique. Specific details can be referenced in the [facility]'s radiology CT exam operational policy. COMPARISON: Opposite foot and ankle CT. FINDINGS: Right ankle: Bone density is diffusely decreased, perhaps related to age and/or disuse. Alignment is normal at the mortise. There is an osteophyte at the lateral margin of the talar dome. No suggestion of an osteochondral defect. There is no fracture or dislocation at the ankle. No soft tissue fluid co llection or edema. The flexor and extensor tendons appear intact within the imaged region. Right foot: Talonavicular degenerative findings are moderate to severe. There is mild degenerative ch le at the subtalar joints. Mild midfoot degenerative findings most notable at the navicular-medial cuneiform articulation and at the first and second TMT joints. There are [id number] degenerativ e findings at the first MTP joint. No fracture or dislocation. IMPRESSION: No fracture or dislocation at the right foot or ankle with multifocal degenerative findings as noted and most significant about the navicular. Report Dictated By: Jax Berry MD at 07/11/2018 11:13 AM Report E-Signed By: Jax Berry MD at 07/11/2018 11:21 AM WSN:[id number]
--- NOTE | 2018-07-11 11:26 | RADIOLOGY IMAGING REPORT ---
FACILITY: [facility] PATIENT NAME: Linda Smith : 1975 MR: [id number] V: [id number] EXAM DATE: ORDERING PHYSICIAN: LUCIUS ARBOLEDA TECHNOLOGIST: [place] [facility] [place] : 1975 Visit/Account:[id number] Date of Sevice: 07/11/2018 INDICATION: . Bilateral foot and ankle pain. Was in a wheelchair for 7 years and began walking again one year ago. DATE: 07/11/2018 11:13 AM. TECHNIQUE: CT FOOT W/O RT, CT ANKLE W/O RT. Noncontrast axial CT imaging was performed through the [facility] foot [facility] ankle. One of the following dose optimization techniques was utilized in the performance of this exam: Automated exposure control; adjustment of the mA and/or kV according to the patient's size; or use of an iterative reconstruction technique. Specific details can be referenced in the [facility]'s radiology CT exam operational policy. COMPARISON: Opposite foot and ankle CT. FINDINGS: Right ankle: Bone density is diffusely decreased, perhaps related to age and/or disuse. Alignment is normal at the mortise. There is an osteophyte at the lateral margin of the talar dome. No suggestion of an osteochondral defect. There is no fracture or dislocation at the ankle. No soft tissue fluid co llection or edema. The flexor and extensor tendons appear intact within the imaged region. Right foot: Talonavicular degenerative findings are moderate to severe. There is mild degenerative ch le at the subtalar joints. Mild midfoot degenerative findings most notable at the navicular-medial cuneiform articulation and at the first and second TMT joints. There are [id number]-ip-[id number] degenerativ e findings at the first MTP joint. No fracture or dislocation. IMPRESSION: No fracture or dislocation at the right foot or ankle with multifocal degenerative findings as noted and most significant about the navicular. Report Dictated By: Jax Berry MD at 07/11/2018 11:13 AM Report E-Signed By: Jax Berry MD at 07/11/2018 11:21 AM WSN:[id number]
--- NOTE | 2018-07-11 11:33 | RADIOLOGY IMAGING REPORT ---
FACILITY: [facility] PATIENT NAME: Linda Smith : 1975 MR: [id number] V: [id number] EXAM DATE: ORDERING PHYSICIAN: LUCIUS ARBOLEDA TECHNOLOGIST: Location: [facility] Patient: Linda Smith : 1975 Visit/Account:[id number] Date of Sevice: 07/11/2018 INDICATION: . Recently began walking after having been wheelchair bound. DATE: 07/11/2018 11:23 AM. TECHNIQUE: CT FOOT W/O LT, CT ANKLE W/O LT. Noncontrast axial CT imaging was performed to the left fo ot and ankle with sagittal and coronal reformats. One of the following dose optimization techniques w as utilized in the performance of this exam: Automated exposure control; adjustment of the mA and/or kV according to the patient's size; or use of an iterative reconstruction technique. Specific detai ls can be referenced in the facility's radiology CT exam operational policy. COMPARISON: Opposite foot and ankle CT. FINDINGS: Left ankle: Bone density is diffusely decreased, perhaps from disuse and/or age. Mortise alignment is normal. There is no suggestion of an osteochondral defect. No fracture or dislocation. Left foot: A trigonal process of the talus is mildly prominent. Scattered mid foot degenerative findi ngs are mild. No soft tissue edema or fluid collection. The flexor and extensor tendons appear grossl y intact. IMPRESSION: No acute osseous abnormality of the left foot or ankle. Scattered degenerative findings as noted. Report Dictated By: Jax Berry MD at 07/11/2018 11:23 AM Report E-Signed By: Jax Berry MD at 07/11/2018 11:30 AM WSN:[id number]
--- NOTE | 2018-07-11 11:34 | RADIOLOGY IMAGING REPORT ---
FACILITY: [facility] PATIENT NAME: Linda Smith : 1975 MR: [id number] V: [id number] EXAM DATE: ORDERING PHYSICIAN: LUCIUS ARBOLEDA TECHNOLOG[place]: [place] [facility] [place] : 1975 Visit/Account:[id number] Date of Sevice: 07/11/2018 INDICATION: . Recently began walking after having been wheelchair bound. DATE: 07/11/2018 11:23 AM. TECHNIQUE: CT FOOT W/O LT, CT ANKLE W/O LT. Noncontrast axial CT imaging was performed to the left fo ot and ankle with sagittal and coronal reformats. One of the following dose optimization techniques w as utilized in the performance of this exam: Automated exposure control; adjustment of the mA and/or kV according to the patient's size; or use of an iterative reconstruction technique. Specific detai ls can be referenced in the facility's radiology CT exam operational policy. COMPARISON: Opposite foot and ankle CT. FINDINGS: Left ankle: Bone density is diffusely decreased, perhaps from disuse and/or age. Mortise alignment is normal. There is no suggestion of an osteochondral defect. No fracture or dislocation. Left foot: A trigonal process of the talus is mildly prominent. Scattered mid foot degenerative findi ngs are mild. No soft tissue edema or fluid collection. The flexor and extensor tendons appear grossl y intact. IMPRESSION: No acute osseous abnormality of the left foot or ankle. Scattered degenerative findings as noted. Report Dictated By: Jax Berry MD at 07/11/2018 11:23 AM Report E-Signed By: Jax Berry MD at 07/11/2018 11:30 AM WSN:[id number]
== END ==
LOC: CT 07:00
PROVIDERS: ATTEND Orthopaedic Surgery
DX: M19.071 Primary osteoarthritis, right ankle and foot (principal); M19.072 Primary osteoarthritis, left ankle and foot

== ENCOUNTER 2018-10-03 20:27 | Emergency (ER) | payer MEDICAID ==
[2018-04-23 11:07] VITALS: Wt 77.1 kg
--- NOTE | 2018-10-03 20:36 | ER Report ---
History and Physical Time Seen By MD: 20:35 HPI/ROS CHIEF COMPLAINT: Migraine headache HISTORY OF PRESENT ILLNESS: 42-year-old female presents ambulatory to the ER complaining of sudden onset of a severe migraine at 4 PM. She states this is typical of her migraines. She hasn't had one for a while. She used to get them all the time in [place] and had to go in for shots frequently. She describes bifrontal occipital headache with photophobia and nausea and vomiting 3. No recent illness fever chills or stiff neck. She reports never having a CT scan in the past to evaluate her head. REVIEW OF SYSTEMS: Respiratory: No cough, no dyspnea. Cardiovascular: No chest pain, no palpitations. Gastrointestinal: As above Musculoskeletal: No back pain. Allergies: Coded Allergies: jose alfredo (Verified Allergy, Unknown, UNKNOWN, 04/15/18) hydrocodone (Verified Allergy, Unknown, UNKNOWN, 04/15/18) Home Meds Active Scripts Ondansetron Hcl (ZOFRAN) 4 Mg Tablet, 4 MG PO Q6H PRN for NAUSEA/VOMITING, #12 Prov:JULISSA ALLEN DO 10/03/18 Reported Medications Secukinumab (Cosentyx (2 Syringes)) 150 Mg/1 Ml Syringe, 150 MG IJ Q4WK 04/15/18 Discontinued Reported Medications Albuterol Sulfate (PROVENTIL HFA) 6.7 Gm Inh, 2 PUFF INH Q4-6H PRN for PAIN, INH 04/15/18 Ferrous Sulfate (FERROUS SULFATE) 325 Mg Tablet, 325 PO BID 01/24/18 Discontinued Scripts Docusate Sodium (COLACE) 100 Mg Capsule, 100 MG PO BID PRN for CONSTIPATION for 10 Days, #20 CAPSULE Prov:JULIANN GRANADOS 04/22/18 Oxycodone Hcl/Acetaminophen (PERCOCET 5-325 MG TABLET) 1 Each Tablet, 1 EACH PO Q4-6H PRN for PAIN, #20 TAB 0 Refills TAKE 1 TABLET NEEDED FOR PAIN - NO CLOSER THAN EVERY 4-6 HOURS. Prov:JULIANN GRANADOS 04/22/18 Ibuprofen (IBUPROFEN) 800 Mg Tablet, 1 TAB PO Q8H, #30 TAB 0 Refills Take with food every 8 hours. Prov:JULIANN GRANADOS 04/22/18 Reviewed Nurses Notes: Yes Old Medical Records Reviewed: Yes Hx Smoking: Yes (2-3 PP WEEK QUIT 2012) Smoking Status: Former Smoker Hx Substance Use Disorder: No Hx Alcohol Use: Yes Constitutional Vital Sign - Last 24 Hours 10/03/18 10/03/18 10/03/18 10/03/18 20:28 20:32 21:07 21:30 Temp 98.6 Pulse 85 67 Resp 16 B/P (MAP) 120/80 120/80 (93) 125/77 (93) 118/78 (91) Pulse Ox 94 94 O2 Delivery Room Air 10/03/18 10/03/18 10/03/18 10/03/18 21:35 21:40 21:45 21:50 Pulse 69 82 67 66 Pulse Ox 94 94 90 91 10/03/18 10/03/18 21:55 22:00 Pulse 65 67 B/P (MAP) 111/72 (85) Pulse Ox 92 95 Intake and Output 10/03/18 10/03/18 10/04/18 15:00 23:00 07:00 Intake Total 1000 ml Balance 1000 ml Physical Exam General Appearance: The patient is alert, has no immediate need for airway protection and no current signs of toxicity. Vital signs stable, afebrile, pulse ox normal HEENT: Pupils equal and round no injection. EOMI, PERRLA,+ photophobia. TMs normal, oropharynx without redness or exudate Respiratory: Chest is non tender, lungs are clear to auscultation. Cardiac: regular rate and rhythm Gastrointestinal: Abdomen is soft and non tender, no masses, bowel sounds normal. Musculoskeletal: Neck: Neck is supple and non tender. No meningismus, no lymphadenopathy Extremities have full range of motion and are non tender. Skin: No rashes or lesions. Neuro: Alert and oriented 3, cranial nerves II through XII intact motor 5/5 all groups, sensory intact to light touch 4 DIFFERENTIAL DIAGNOSIS: After history and physical exam differential diagnosis was considered for headache including but not limited to subarachnoid hemorrhage, migraine headache, tension headache and infectious causes such as meningitis, pharyngitis and sinusitis. Medical Decision Making ED Course/Re-evaluation Clinical Indication for ER IV: Hydration, IV Access ED Course Patient was admitted to an examination room. H&P was done. The differential diagnoses was considered. Patient with a classic recurrence of her migraine. She is treated with IV fluids, Zofran, Benadryl, Toradol, Decadron. She still has residual headache. She is given Reglan and fentanyl 50 g and her headache is completely resolved. She is discharged home with prescription 1st that are given for nausea control. She is advised to follow-up with primary care for treatment with sumatriptan trial and other suppressive therapies. Patient was also given information to follow up with neurology, Dr. Lisa Condon Decision to Disposition Date: Oct 03, 2018 Decision to Disposition Time: 21:13 Depart Departure Latest Vital Signs Vital Signs Date Time Temp Pulse Resp B/P (MAP) Pulse Ox O2 Delivery O2 Flow Rate FiO2 10/03/18 22:00 67 111/72 (85) 95 10/03/18 20:28 98.6 16 Room Air Impression: Primary Impression: Migraine headache Condition: Improved Disposition: HOME OR SELF-CARE Referrals: JENARO LAL PA-C New Scripts Ondansetron Hcl (ZOFRAN) 4 Mg Tablet 4 MG PO Q6H PRN for NAUSEA/VOMITING, #12 Prov: JULISSA ALLEN DO 10/03/18 Patient Instructions: Migraine Headache (ED) Additional Instructions: Take Zofran for your next migraine along with Tylenol 650 mg and ibuprofen 600 mg Old with your primary care for abortive medicines and referral to neurology Problem Qualifiers Primary Impression: Migraine headache Migraine type: unspecified Status migrainosus presence: without status migrainosus Intractability: not intractable Qualified Codes: G43.909 - Migraine, unspecified, not intractable, without status migrainosus JULISSA ALLEN DO Oct 03, 2018 20:36
[2018-10-03] MEDS ORDERED: KETOROLAC 30 MG/ML VIAL IVP ONE (20:45)
[2018-10-03] MEDS ORDERED: DEXAMETHASONE SOD PHOS 10MG/ML IVP ONE (20:45)
[2018-10-03] MEDS ORDERED: ONDANSETRON 4 MG/2 ML VIAL IVP ONE (20:45)
[2018-10-03] MEDS ORDERED: NS(*) 0.9% 1000 ML BAG 1,000 ML IV ONE (20:45)
[2018-10-03] MEDS ORDERED: diphenhydrAMINE 50 MG/ML VIAL IVP ONE (20:45)
[2018-10-03] MEDS ORDERED: fentaNYL CITR 100 MCG/2 ML AMP IVP ONE (21:25)
[2018-10-03] MEDS ORDERED: METOCLOPRAMIDE 10 MG/2 ML SDV IVP ONE (21:25)
[2018-10-03 22:00] VITALS: BP 111/72
[2018-10-03] MEDS ORDERED: ONDA4TAB97 PO (22:01)
== END 2018-10-03 22:01 | disposition home or self-care (01) ==
LOC: ER 20:43
DX: G43.909 Migraine, unspecified, not intractable, without status migrainosus (principal)
CPT/HCPCS: 96374; 96375; 99284; J1100; J1200; J1885; J2405; J2765; J3010; J7030

== ENCOUNTER → 2018-11-11 | Outpatient (CLI) | payer MEDICAID ==
[2018-04-23 11:07] VITALS: BMI 31.6
[~2018-11-11] MED LIST changes: +ONDA4TAB97 PO
== END ==
LOC: RAD 15:48
PROVIDERS: ATTEND Physician Assistant
DX: Z02.9 Encounter for administrative examinations, unspecified (principal)

== ENCOUNTER → 2018-11-11 | Outpatient (CLI) | payer MEDICAID ==
[2018-04-23 11:07] VITALS: BMI 31.6
--- NOTE | 2018-11-11 16:23 | RADIOLOGY IMAGING REPORT ---
FACILITY: [facility] PATIENT NAME: Linda Smith : 1975 MR: [id number] V: [id number] EXAM DATE: ORDERING PHYSICIAN: JENARO LAL TECHNOLOGIST: [facility] Patient: Linda Smith : 1975 Visit/Account:[id number] Date of Sevice: 11/11/2018 Exam: KUB SINGLE VIEW ABDOMEN Indication: Abdominal and bladder pain, Comparison: None available Findings: The left lower quadrant, there is a 7 mm calcification present. This could represent pelvi c phlebolith versus distal ureteral stone. There is a nonobstructive bowel gas pattern. Cholecystectomy clips are noted. IMPRESSION: 1. Possible distal left ureteral stone versus pelvic phlebolith. If clinically indicated recommend CT scan for further evaluation. Report Dictated By: Vern Claudio at 11/11/2018 4:08 PM Report E-Signed By: Vern Claudio at 11/11/2018 4:16 PM WSN:[email or web address]
== END ==
LOC: RAD 14:24
PROVIDERS: ATTEND Physician Assistant
DX: R10.0 Acute abdomen (principal)
CPT/HCPCS: 74018

== ENCOUNTER → 2018-12-21 | Outpatient (CLI) | payer MEDICAID ==
[2018-04-23 11:07] VITALS: BMI 31.6
--- NOTE | 2018-12-21 17:29 | RADIOLOGY IMAGING REPORT ---
FACILITY: [facility] PATIENT NAME: Linda Smith : 1975 MR: [id number] V: [id number] EXAM DATE: ORDERING PHYSICIAN: LUCIUS ARBOLEDA TECHNOLOGIST: Location: [facility] Patient: Linda Smith : 1975 Visit/Account:[id number] Date of Sevice: 12/21/2018 CT of the left ankle Indication: Left ankle arthritis Comparison: Similar study on 07/11/2018 Technique: Axial CT images were obtained through the left ankle. Reformatted coronal and sagittal images were re viewed. One of the following dose optimization techniques was utilized in the performance of this exam: autom ated exposure control; adjustment of the mA and/or kV according to the patient's size; or use of an i terative reconstruction technique. Specific details can be referenced in the facility's radiology CT exam operational policy. Findings: There is a small calcaneal spur seen. Mild anterior osteophytosis of the anterior tibiotalar articulation. Mild dorsal osteophytosis of the navicular cuneiform and talonavicular articulation as well. Small likely reactive effusion of the tibiotalar joint. IMPRESSION: 1. Degenerative changes left ankle and foot as above. 2. No acute osseous abnormality. Report Dictated By: Carlos Navarrete MD at 12/21/2018 5:17 PM Report E-Signed By: Carlos Navarrete MD at 12/21/2018 5:20 PM WSN:[id number]
== END ==
LOC: CT 07:29
PROVIDERS: ATTEND Orthopaedic Surgery
DX: M19.072 Primary osteoarthritis, left ankle and foot (principal)